=== PATIENT | male | born 1985 | race Caucasian/White ===

== ENCOUNTER 2022-11-02 11:32 | Emergency (ER) | payer SELFPAY ==
[2022-11-02 11:37] VITALS: BP 121/76; PULSE 71; RESP 16; TEMP 36.7; O2SAT 97; BMI 26.1
[2022-11-02] MEDS: 0.9% Normal Saline 1,000 ML 1000 ML IV (11:56)
[2022-11-02] MEDS: Ketorolac 30 MG/ML Syringe IV (11:57)
[2022-11-02] MEDS: HYDROmorphone 0.5 MG/0.5 ML SYRINGE IV ×2 (11:58→13:08)
--- NOTE | 2022-11-02 11:58 | EX.ED.DYSGE1 ---
HPI <HAFSA Lombardo - Last Filed: 11/02/22 12:59> History of Present Illness Chief Complaint: Back Narrative Narrative: Patient is a 36-year-old male with no significant medical history who presents to the emergency department with lower back pain. Patient states he has had pain like this 2 years ago which she was given Flexeril and pain medicine. 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 Today, the pain in his lower back was severe he needed to come to the emergency department. Patient did come by ambulance from urgent care, he was given fentanyl as well as Zofran. Patient denies any radiation down his lower legs. He denies any bowel or bladder continence. Denies any history of IV drug abuse. PFS <HAFSA Lombardo - Last Filed: 11/02/22 12:59> [facility] Medical History (Updated 11/02/22 @ 12:51 by HAFSA Lombardo) Back pain Home Medications cyclobenzaprine 10 mg tablet 10 mg PO TID PRN Muscle Spasm #14 TABLETS 11/02/22 [Rx Last Taken Unknown] ibuprofen 800 mg tablet 800 mg PO Q8H PRN pain #20 tabs 11/02/22 [Rx Last Taken Unknown] oxycodone-acetaminophen 5 mg-325 mg tablet (Percocet) 1 tab PO Q8H PRN pain 3 days #10 tabs 11/02/22 [Rx Last Taken Unknown] Allergy/AdvReac Type Severity Reaction Status Date / Time morphine AdvReac Intermediate Itching Verified 11/02/22 11:37 Social History Smoking Status: Current every day smoker tobacco type: cigarettes ROS <HAFSA Lombardo - Last Filed: 11/02/22 12:59> ROS ED ROS Narrative Constitutional: Negative for fever, chills, weight loss, weakness Eyes: Negative for vision loss, vision change, double vision ENT: Negative for any sore throat, ear pain, congestion Cardiovascular: Negative for any chest pain, tightness, palpitations Respiratory: Negative for any cough, sputum production, hemoptysis, dyspnea, dyspnea on exertion, orthopnea Gastrointestinal: Negative for any abdominal pain, nausea, vomiting, diarrhea, constipation, blood in stool, blood in vomit : Negative for any urinary frequency, dysuria, retention, blood in urine Muscle skeletal: Negative for any muscle joint pain, stiffness, myalgias, arthralgias, neck pain. Positive for lower back pain Neurological: Negative for any headache, syncope, numbness or tingling, dizziness Skin: Negative for any rashes, lumps, itching, abrasions, lacerations Psychiatric: Negative for any depression, anxiety, stress, suicidal ideation, homicidal ideation Hematologic: Negative for any easy bruising, excessive bruising, easy bleeding Allergies: Negative for any eczema, hives, rash EXAM <HAFSA Lombardo - Last Filed: 11/02/22 12:59> Physical Exam Narrative Exam Narrative: Vital signs reviewed. Patient appears to be in obvious discomfort secondary to low back pain. HEET: Head normocephalic atraumatic, TMs clear bilaterally. Posterior pharynx is clear, moist mucous membranes. Nares clear bilaterally. Neck: Supple with no lymphadenopathy or tenderness. No signs of meningismus, negative jolt sign. Cardiac: Regular rate and rhythm no murmurs gallops or rubs, equal peripheral pulses bilaterally. Respiratory: Lungs clear to auscultation bilaterally. No chest tenderness. Abdomen: Soft, nontender, nondistended. No abdominal bruit or pulsatile masses. No hepatosplenomegaly Extremities: No peripheral edema, no signs of gross trauma or deformity. Active full range of motion of all extremities. Neuro: Cranial nerves II through XII intact, no focal neurological deficits. Skin: Clean dry and intact with no rash, purpura, petechiae, vesicles or pustules. Backs/flank: No CVA tenderness, no midline spinal tenderness, no deformity. Examinations consistent with muscle skeletal back pain. No red flag sign. Psych: Normal mood and affect. No SI, HI or acute psychosis. Const Vital Signs: 11/02/22 11:37 11/02/22 13:08 Temperature 98.1 F Temperature Source Oral Pulse Rate 71 84 Respiratory Rate 16 16 Blood Pressure 121/76 H 109/57 L Blood Pressure Mean 91 Pulse Ox 97 99 Oxygen Delivery Method Room Air <Dr. Bryce Rosario MD - Last Filed: 11/02/22 13:39> Physical Exam Const Vital Signs: 11/02/22 11:37 11/02/22 13:08 Temperature 98.1 F Temperature Source Oral Pulse Rate 71 84 Respiratory Rate 16 16 Blood Pressure 121/76 H 109/57 L Blood Pressure Mean 91 Pulse Ox 97 99 Oxygen Delivery Method Room Air [facility] <HAFSA Lombardo - Last Filed: 11/02/22 12:59> [facility] Treatment and Re-Evaluation :: Arrives in mild discomfort secondary to lower back pain. Patient physical examination yields no red flag signs. There is no evidence suspect any cauda equina. This looks to be muscle skeletal nature. Patient is no weakness to his lower extremities. Patient was given fentanyl, Zofran in the squad. Patient be given IV Dilaudid, Toradol here and be reassessed. On reassessment, the patient was feeling better. He still states have slight back pain. Patient was made aware about back pain, however this might take 1 to 2 weeks to heal completely. Patient will be given a prescription for Percocet, Flexeril, as well as ibuprofen. He is instructed to only use the ibuprofen while he is working. Patient is from [place] and will follow-up outpatient. At this time, patient's examination was consistent with muscle skeletal pain. Patient has no evidence to suspect any cauda equina, spinal abscess. Patient has no radiation down his legs, no weakness to his lower extremities. At this time, patient is stable for discharge. All questions answered <Dr. Bryce Rosario MD - Last Filed: 11/02/22 13:39> [facility] Narrative Medical decision making narrative: I have personally performed a face to face assessment of the patient and have reviewed the [facility] Note. I performed a substantive portion of the visit including all aspects of the following. My gagnon findings include: History is remarkable for atraumatic low back pain. Patient denies bowel bladder dysfunction. Patient denies radicular pain. Patient denies foot drop. Patient has buckling of his knees going up or down steps. Patient denies saddle paresthesia or anesthesia. Patient denies fever or chills. Patient denies recent dental procedure. Exam is patient appears uncomfortable. Straight leg test is negative right and left. Patella and ankle reflex are 1+ and symmetric. EHLs intact. Plantar and dorsiflexion is 5/5. DP and PT pulse are palpable. Patient has normal gluteal sensation. Patient has reproducible low back pain. There is no evidence of trauma. Medical Decision Making patient exam is consistent with muscle skeletal pain. There is no concern for cauda equina syndrome. Patient was medicated multiple times. He was discharged home with appropriate pain medicine. Other additions or changes: [None] Discharge Plan Triage Chief Complaint: Back ED Midlevel Provider: Wolf Peralta ED Provider: Bryce Rosario Dx/Rx/DC Orders Clinical Impression: Acute lumbar myofascial strain Instructions: ED Back Sprain/Strain Prescriptions: New oxycodone-acetaminophen [Percocet] 5-325 mg tablet 1 tab PO Q8H PRN (Reason: pain) 3 Days Qty: 10 0RF ibuprofen 800 mg tablet 800 mg PO Q8H PRN (Reason: pain) Qty: 20 0RF cyclobenzaprine 10 mg tablet 10 mg PO TID PRN (Reason: Muscle Spasm) Qty: 14 0RF Primary Care Provider: Care Physician,No Primary Referrals: NOT,DEFINED [Non-Staff] - Activity Restrictions/Additional Instructions: Ensure that you perform gentle stretching. Ice and elevate. Disposition Disposition: Home, Self Care Discharge Date/Time: 11/02/22 13:16
[2022-11-02 13:08] VITALS: BP 109/57; PULSE 84; RESP 16; O2SAT 99
== END 2022-11-02 13:16 | disposition home or self-care (01) ==
LOC: ED 13:04
PROVIDERS: Emergency Provider Emergency Medicine; Visit Provider Emergency Medicine
DX: S39.012A Strain of muscle, fascia and tendon of lower back, initial encounter (principal); F17.210 Nicotine dependence, cigarettes, uncomplicated; X50.9XXA Other and unspecified overexertion or strenuous movements or postures, initial encounter; Y99.0 Civilian activity done for income or pay
CPT/HCPCS: 96361; 96374; 96375; 96376; 99285; J7030